=== PATIENT | female | born 1960 | race African-American/Black ===

== ENCOUNTER 2018-02-13 13:53 | Emergency (ER) | payer OTHER ==
[2018-02-13] MEDS ORDERED: Morphine 4 MG/ML VIAL ONE (15:00)
[2018-02-13] MEDS ORDERED: Ketorolac Tromethamine 30 MG/ML VIAL ONE (15:00)
[2018-02-13] MEDS ORDERED: Diazepam 5 MG TAB ONE (15:00)
--- NOTE | 2018-02-13 15:40 | RAD ---
RIGHT HAND 3 VIEWS: HISTORY Pain in hand. FINDINGS: Carpals appear normally aligned and appear intact. Metacarpals and phalanges appear intact. MCP and IP joints unremarkable. IMPRESSION: No acute fracture identified. POS: [facility]
--- NOTE | 2018-02-13 15:41 | RAD ---
RIGHT ELBOW 4 VIEWS: HISTORY: Injury with pain. FINDINGS: No evidence of fracture. No evidence of joint effusion. IMPRESSION: No acute osseous abnormality. POS: [facility]
== END 2018-02-13 15:54 | disposition home or self-care (01) ==
LOC: ERS 13:53
DX: M54.5 Low back pain (principal); M25.531 Pain in right wrist; X50.0XXA Overexertion from strenuous movement or load, initial encounter
CPT/HCPCS: 96372; J1885; J2270